=== PATIENT | female | born 1960 | race African-American/Black ===

== ENCOUNTER 2017-08-13 09:20 | Observation (INO) | payer OTHER ==
[~2017-08-13] VITALS: Ht 162.6 cm; Wt 77.0 kg
[~2017-08-13 09:20] MED LIST: BACITRACIN OINT 500U/GM, 15 GM ONE; EPINEPHRINE 1 MG/ML, 1ML ONE; EPINEPHRINE TOPICAL SOLN 1 MG/ML, 30ML ONE; FLUORESCEIN OPHTHALMIC 1 MG STRIP ONE; LIDOCAINE 1%, 20ML ONE; OXYMETAZOLINE NASAL SPRAY 0.05%, 15ML ONE
[2017-08-13] MEDS ORDERED: LACTATED RINGERS 1,000 ML IV SCH ×2 (10:07→17:00)
[2017-08-13] MEDS ORDERED: ZOLP-413 PO (10:10)
[2017-08-13] MEDS ORDERED: PRED10TA PO (10:10)
[2017-08-13] MEDS ORDERED: MYCOPHENOLATE PO (10:10)
[2017-08-13] MEDS ORDERED: MULT-658 PO (10:12)
[2017-08-13] MEDS ORDERED: VITAMIN D PO (10:12)
[2017-08-13 10:22] VITALS: BP 177/112
[2017-08-13] MEDS ORDERED: LIDOCAINE 1%, 2ML SQ PRN (10:30)
[2017-08-13] MEDS ORDERED: MIDAZOLAM 1 MG/ML, 2ML ONE (11:17)
[2017-08-13] MEDS ORDERED: FENTANYL PF 250 MCG/5ML ONE (11:17)
[2017-08-13] MEDS ORDERED: PROPOFOL 10 MG/ML, 20ML ONE (11:18)
[2017-08-13] MEDS ORDERED: ROCURONIUM 10 MG/ML,10ML ONE (11:19)
[2017-08-13] MEDS ORDERED: CEFAZOLIN 1,000 MG ONE ×2 (11:20)
[2017-08-13] MEDS ORDERED: SODIUM CHLORIDE 0.9% PF 10ML ONE (11:20)
[2017-08-13] MEDS ORDERED: DEXAMETHASONE 4 MG/ML, 1ML ONE ×2 (11:21)
[2017-08-13] MEDS ORDERED: ONDANSETRON 2MG/ML, 2ML ONE (11:21)
[2017-08-13] MEDS ORDERED: HYDROCORTISONE 100 MG INJ. ONE (11:24)
[2017-08-13] MEDS ORDERED: LIDOCAINE 1%, 20ML INFIL ONE (11:31)
[2017-08-13] MEDS ORDERED: BACITRACIN OINT 500U/GM, 15 GM TP ONE (11:32)
[2017-08-13] MEDS ORDERED: EPINEPHRINE 1 MG/ML, 1ML INFIL ONE (11:32)
[2017-08-13] MEDS ORDERED: HYDROmorphone 1 MG/ML, 1ML IV PRN (12:00)
[2017-08-13] MEDS ORDERED: PROMETHAZINE 25 MG/ML, 1ML IV PRN (12:00)
[2017-08-13] MEDS ORDERED: OXYcodone 5 MG/5 ML ORAL.SOL UDC PO PRN (12:00)
[2017-08-13] MEDS ORDERED: ONDANSETRON 2MG/ML, 2ML IVPush PRN ×2 (12:00→17:00)
[2017-08-13] MEDS ORDERED: LABETALOL 5MG/ML, 20ML IV PRN (12:00)
[2017-08-13] MEDS ORDERED: hydrALAzine 20 MG/ML, 1ML IV PRN (12:00)
[2017-08-13] MEDS ORDERED: ACETAMINOPHEN 325 MG TABLET PO PRN ×2 (12:00→17:00)
[2017-08-13] MEDS ORDERED: PROMETHAZINE 12.5 MG SUPP PR PRN (12:00)
[2017-08-13] MEDS ORDERED: MEPERIDINE/PF 25MG/0.5ML IVPush PRN (12:00)
[2017-08-13] MEDS ORDERED: FENTANYL PF 100 MCG/2ML IV PRN (12:00)
[2017-08-13] MEDS ORDERED: EPINEPHRINE TOPICAL SOLN 1 MG/ML, 30ML TP ONE (12:48)
[2017-08-13] MEDS ORDERED: FLUORESCEIN OPHTHALMIC 1 MG STRIP HOMEOPHTH ONE (12:49)
[2017-08-13] MEDS ORDERED: OXYcodone 5 MG/5 ML ORAL.SOL UDC ONE (13:04)
[2017-08-13] MEDS ORDERED: ACETAMINOPHEN 650 MG/20.3 ML UDC ONE (13:04)
[2017-08-13] MEDS ORDERED: FENTANYL PF 100 MCG/2ML ONE (13:04)
[2017-08-13] MEDS ORDERED: ALBUTEROL SULFATE 2.5 MG/3 ML ONE (13:12)
[2017-08-13] MEDS ORDERED: ALBUTEROL SULFATE 2.5 MG/3 ML NPPB PRN (13:30)
[2017-08-13] MEDS ORDERED: NEOSTIGMINE 1 MG/ML, 10ML ONE (15:48)
[2017-08-13] MEDS ORDERED: GLYCOPYRROLATE 0.2MG/1ML, 5ML ONE (15:48)
[2017-08-13] MEDS ORDERED: MORPHINE SULFATE 4 MG/ML, 1ML IVPush PRN (17:00)
[2017-08-13] MEDS ORDERED: ZOLPIDEM 10MG TABLET PO PRN (17:00)
[2017-08-13] MEDS: LACTATED RINGERS 1,000 ML IV SCH (17:04)
[2017-08-13] MEDS: HYDROcodone/APAP 5/325 TABLET PO PRN (17:41)
[2017-08-13 19:36] VITALS: BP 129/79
[2017-08-13] MEDS: CEPHALEXIN 500 MG CAPSULE PO SCH (20:43)
[2017-08-13 23:05] VITALS: BP 144/80
[2017-08-14 01:45] VITALS: BP 160/96
[2017-08-14] MEDS: HYDROcodone/APAP 5/325 TABLET PO PRN ×2 (02:18→06:23)
[2017-08-14] MEDS: LACTATED RINGERS 1,000 ML IV SCH (02:21)
[2017-08-14 02:29] VITALS: BP 160/84
[2017-08-14 03:23] VITALS: BP 155/94
[2017-08-14 06:45] VITALS: BP 158/85
[2017-08-14] MEDS: CEPHALEXIN 500 MG CAPSULE PO SCH (08:37)
[2017-08-14] MEDS ORDERED: MULTIVITAMIN 1 TABLET PO SCH (09:00)
[2017-08-14] MEDS ORDERED: ACET650S21 PO (10:30)
[2017-08-14] MEDS ORDERED: CEPH-368 PO (10:30)
[2017-08-14] MEDS ORDERED: HYDR-3237 PO (10:31)
== END 2017-08-14 10:53 | disposition home or self-care (01) ==
LOC: OUT 09:20 → 4NOR 14:45 → OUT 23:16 → 4NOR 23:17 → DCLOUNGE 08-14 10:43
PROVIDERS: ADMIT Otolaryngology; ATTEND Otolaryngology
DX: J32.9 Chronic sinusitis, unspecified (principal); D86.9 Sarcoidosis, unspecified; R04.0 Epistaxis; M27.40 Unspecified cyst of jaw
CPT/HCPCS: 31255; 31256; 31276; 31287; 88304; 88305; 88311; 94640; G0378; J0171; J0690; J1100; J1720; J2250; J2405; J2704; J2710; J3010; J3490; J7120; J7512